=== PATIENT | female | born 1955 | race Caucasian/White ===

== ENCOUNTER 2017-09-28 13:37 | Emergency (ER) | payer MEDICARE, SELFPAY ==
[2017-09-28 13:38] VITALS: BP 124/87; PULSE 110; RESP 18; TEMP 36.2; O2SAT 96; BMI 39.2
[2017-09-28] MEDS: Ondansetron 4 MG/2 ML Vial IV (14:18)
[2017-09-28] MEDS: 0.9% Normal Saline 1,000 ML 250 ML IV (14:19)
[2017-09-28] MEDS: Morphine 4 MG/ML Syringe IV (14:19)
[2017-09-28 14:40] LABS: Absolute Lymphocyte Count 2.57 X10^3/ul (0.83-4.51); Absolute Neutrophil Count 7.1 X10^3/uL (2.0-7.7); Basophil# 0.03 X10^3/uL; Basophil% 0.3 % (0-1); Eosinophil# 0.07 X10^3/uL; Eosinophils% 0.7 % (0-5); Hematocrit 50.4 % (37-47); Hemoglobin 17.1 g/dl (12.0-15.0); Lymphocyte # 2.57 X10^3/ul (4.0); Mean Corp Hgb Conc 33.9 g/gl (32-36); Mean Corpuscular Hgb 30.2 pg (27.0-32.0); Mean Platelet Vol. 10.1 fl (6.2-12.0); Monocyte# 0.48 X10^3/uL; Monocyte% 4.7 % (0-10); Neutrophil # 7.09 X10^3/uL (2.7-7.7); Neutrophil % 68.9 % (47-70); Platelet Count 347 K/mm3 (150-450); RBC Distribution Width SD 42.1 fl (35.1-43.9); Red Blood Count 5.66 M/mm3 (4.2-5.4); White Blood Count 10.3 K/mm3 (4.4-11.0)
[2017-09-28 14:44] LABS: POSITIVE COUNT NO; POSITIVE DIFFERENTIAL NO; POSITIVE MORPHOLOGY NO
[2017-09-28 14:52] LABS: Anion Gap 11 (5-15); BUN 13 mg/dL (7-18); Calcium,Total 9.2 mg/dL (8.5-10.1); Chloride 109 mmol/L (98-107); EST Glomerular Filtration Rate 60 mL/min (>60); Est Glom Filt Rate - Afr Amer 73 mL/min (>60); Estimated Creatinine Clearance 45.14 ml/min; Glucose 99 mg/dL (74-106); Potassium 3.2 mmol/L (3.5-5.1); Sodium Level 145 mmol/L (136-145)
--- NOTE | 2017-09-28 16:42 | ED.DCSUM_ITS ---
- ER Visit Summary Date of Service: 09/28/17 Chief Complaint: Turning severe abdominal pain with diarrhea History of Present Illness: The patient is a 62 F who was admitted to [facility] for diarrhea and dehydration. CT of the abdomen revealed enteritis. Stool studies were negative. She was seen today at Dr. Montano's office for follow-up. She was sent to the ER because of severe pain and unable to eat. She denies fever, chills night sweats. She denies any visual, ocular or auditory symptoms. She denies any cardiovascular respiratory symptoms. Only GI symptom is pain and diarrhea she has no urologic symptoms. She does have chronic pain and complains of aches. She denies headache, anesthesia, paresthesia or muscle weakness. Per review of Dr. Montano's office notes there is a history of chronic pain and anxiety. Physical Examination: Vital signs are remarkable for heart rate of 110. Head is atraumatic normocephalic. Pupils are equal round reactive. Extraocular muscles are intact. TMs are pearly white with landmarks noted. Nares patent with no drainage. Posterior pharynx without erythema or exudate. Uvula is midline. There is no dysphonia or dysphasia. Trachea is midline. There is no stridor with auscultation of the neck. Heart is regular without murmur, gallop or rub. S1 and S2 are normal. Lungs are clear to auscultation with good movement of air bilaterally. With distraction patient had no abdominal pain bowel sounds are present and normal. Test Results: White count is normal with a hemoglobin of 17 which probably represents hemoconcentration. Electro panel is unremarkable with a potassium of 3.2 which is an improvement. Potassium at [facility] was 3.0. Emergency Department Course and Treatment: Since patient had hypokalemia with last hospitalization the BMP was obtained as well as CBC. Patient had an IV established. Received 4 mg of Zofran and 4 mg of morphine. Patient is requesting more pain medicine. Patient was told she would not be discharged with any pain medicine other than dicyclomine. She states she has dicyclomine at home. She will not receive any additional morphine since she has history of chronic pain and concern problem that she may have a opiate dependency. Patient has been in the department for 3+ hours and has had no vomiting or diarrhea. Treatment Plan: She was informed her blood work is improved from her last hospital admission. She was informed the expiration of her pain was secondary to the enteritis. She was informed that she does not meet criteria for admission. Daughter informed me to do what was medically necessary and she would deal with her mother. Disposition: Discharged to home Impression: 1. Burning severe diffuse abdominal pain 2. Recent diagnosis of enteritis 3. Reported diarrhea 4. History of chronic pain 5. History of hypertension 6. History of hypothyroidism 7. History of anxiety disorder This note was generated with [employer] dictation software. It may contain incorrect words, spelling, and punctuation that were not noted in review of the chart prior to signing ED Disposition - Plan for ED Patient: Disposition: Home or Assisted Living Chief Complaint: Abd Pain Instructions: ED Abdominal Pain Unkn Cause Referrals: Rashad Siegel MD [Primary Care Provider] - As Needed
[2017-09-28 17:25] VITALS: BP 136/80; PULSE 95; RESP 14; O2SAT 99
== END 2017-09-28 17:27 | disposition home or self-care (01) ==
PROVIDERS: Emergency Provider Emergency Medicine; Family Provider Family Medicine; PCP Family Medicine
DX: R10.84 Generalized abdominal pain (principal); K52.9 Noninfective gastroenteritis and colitis, unspecified; G89.29 Other chronic pain; E86.0 Dehydration; E11.9 Type 2 diabetes mellitus without complications; I10 Essential (primary) hypertension; E03.9 Hypothyroidism, unspecified; K21.9 Gastro-esophageal reflux disease without esophagitis; F41.9 Anxiety disorder, unspecified; E66.9 Obesity, unspecified; Z72.0 Tobacco use; Z79.899 Other long term (current) drug therapy
CPT/HCPCS: 80048; 85025; 96361; 96374; 96375; 99283; J7030; J2405

== ENCOUNTER 2017-10-08 11:11 | Day surgery (SDC) | payer MEDICARE, SELFPAY ==
--- NOTE | 2017-10-08 | EGD_PTH ---
PATIENT: BUBBA PETERSON LOC: EN U#:[id number] AGE/SX: 62/F ROOM: RE10/08/[address]: Dr. Andrzej Durbin MD : 1955 BED: DIS: 10/08/2017 SPEC #: [id number] RECD: 10/08/17 14:13 STATUS: CHADD KARON #: [id number] JOSE: 10/08/17 00:[address]: Andrzej Durbin DEPT: SURGICAL PATHOLOGY RECD BY: Farzaneh Kline ENTERED: 10/08/17 15:17 SP TYPE: EGD BIOPSY OT DR: Dr. Rashad Siegel MD Tissues: A - Gastric mucous membrane B - Gastric mucous membrane C - Ileum, NOS D - COLON BIOPSY Procedures: Surgery Specimen Level IV HEADER OPERATION: EGD and colonoscopy PRE-OP DIAGNOSIS: Nausea, abdomen pain, change in bowel habits TISSUE SUBMITTED: A ? Jejunal biopsy, B ? Antral biopsy for histo and H. pylori, C ? Terminal ileum biopsy, D ? Random colonic biopsy MICROSCOPIC DIAGNOSIS A. Jejunum, biopsy: No pathologic diagnosis. B. Gastric antrum, biopsy: Mild chronic gastritis. C. Terminal ileum, biopsy: No pathologic change. D. Colon, random biopsy: Mild melanosis coli. AM:margo 10/09/17 COMMENT B. The results of immunohistochemistry for Helicobacter pylori will be reported separately ([id number]). C. Benign appearing lymphoid aggregates are present. MICROSCOPIC DESCRIPTION Slides are reviewed. GROSS DESCRIPTION A - Received in fixative is one container labeled with the patient's name and designated jejunal biopsy. The specimen consists of one irregular fragment of light woodward soft tissue that measures 0.4 x 0.3 x 0.1 cm. The specimen is totally submitted in one cassette. B - Received in fixative is one container labeled with the patient's name and designated antral biopsy. The specimen consists of one irregular fragment of light woodward soft tissue that measures 0.3 x 0.3 x 0.1 cm. The specimen is totally submitted in one cassette. C - Received in fixative is one container labeled with the patient's name and designated terminal ileum biopsy. The specimen consists of one irregular fragment of light woodward soft tissue that measures 0.4 x 0.3 x 0.1 cm. The specimen is totally submitted in one cassette. D - Received in fixative is one container labeled with the patient's name and designated random colonic biopsy. The specimen consists of multiple irregular fragments of light woodward soft tissue that in aggregate measure 0.8 x 0.5 x 0.1 cm. The specimen is totally submitted in one cassette. / MEI:margo 10/08/17 TC:3 CPT: 89046 x4
--- NOTE | 2017-10-08 | IMM_PTH ---
PATIENT: BUBBA PETERSON LOC: EN U#:[id number] AGE/SX: 62/F ROOM: RE10/08/[address]: Dr. Andrzej Durbin MD : 1955 BED: DIS: 10/08/2017 SPEC #: [id number] RECD: 10/09/17 14:32 STATUS: CHADD RENani #: [id number] JOSE: 10/08/17 00:[address]: Andrzej Durbin DEPT: IMMUNOHISTOCHEMISTRY RECD BY: Camilla Kunz ENTERED: 10/09/17 14:32 SP TYPE: IMMUNO OTHR DR: Dr. Rashad Siegel MD Tissues: B - Stomach, NOS Procedures: H Pylori (initial) PHYSICIAN & INSTITUTION [place] [id number] SPECIMEN INFORMATION: Tissue Source: B ? Antral biopsy Clinical Info: Nausea, abdomen pain, change in bowel habits Specimen Number: [id number] CPT code: 92779 METHODOLOGY: Deparaffinized sections of prefer/formalin-fixed tissue or PAP/DQ stained slides are incubated with monoclonal/polyclonal antibodies/oligonucleotide probes. Localization is made via biotin free immunoperoxidase method. Appropriate controls are performed and reacted as expected. Results on target cell population are indicated in the following table: RESULTS: ANTIBODY / CLONE RESULT Block B H Pylori (polyclonal) negative These tests were developed and their performance characteristics determined by [facility]. They may not have been cleared or approved by the U.S. Food and Drug Administration. The FDA has determined that such clearance or approval is not necessary. INTERPRETATION: B. Antral biopsy: Negative for Helicobacter pylori organisms. AM:margo 10/10/17
[2017-10-08 11:28] VITALS: BP 123/61; PULSE 79; RESP 16; TEMP 36.6; O2SAT 96; BMI 40.4
--- NOTE | 2017-10-08 12:10 | HP.PCM_ITS ---
History and Physical Date of Admission: 10/08/17 Annetta Olivares a 62 year old female who is a consultation requested by Dr. Siegel~for an opinion regarding altered bowel habits. ~My final recommendations will be communicated back to the requesting physician by way of shared Medical record. The patient has~been seen previously. The patient denies~a family~ history of colon cancer. ? The patient has been seen by Dr. Siegel on several occasions, as far back as a year ago, for reported abdominal pain and/or diarrhea. ~ ? Component Latest Ref Rng & Units 07/19/2017 Protein, Total 6.3 - 8.0 g/dL 7.5 Albumin 3.9 - 4.9 g/dL 4.3 Calcium 8.5 - 10.2 mg/dL 9.4 Bilirubin, Total 0.2 - 1.3 mg/dL 0.2 Alkaline Phosphatase 32 - 117 U/L 75 AST 13 - 35 U/L 25 Glucose 74 - 99 mg/dL 104 (H) BUN 7 - 21 mg/dL 14 Creatinine 0.58 - 0.96 mg/dL 0.96 Sodium 136 - 144 mmol/L 141 Potassium 3.7 - 5.1 mmol/L 3.4 (L) Chloride 97 - 105 mmol/L 99 CO2 22 - 30 mmol/L 25 Anion Gap 9 - 18 mmol/L 17 ALT 7 - 38 U/L 28 eGFR- ? >60 eGFR-All Other Races . 59 ? ? Presenting complaint: The patient tells me she has an urge to have a bowel movement every ten to fifteen minutes, starting shortly after rising. ~Onset a couple months ago. The thickest stool is like pudding. No blood. Toward the end of the movements, which can go on until at least noon, the stools will be morales liquid. ~ ? The patient also reports that she wake at night with the urge to go. ? The patient is currently having LUQ pain. ~She tells me that it be a stabbing sensation. ~The pain can move down the left side. ~The LUQ stays tender. ~~She states my whole gut area feels like someone hit it with a baseball bat. ? The patient takes famotidine before bed. ~She gets reflux at night. ~Usually has dinner around 4-5:00. She doesn't eat after that. She also takes oxycodone before bed. She heads to bed between 10-11. ~She sleeps on memory foam propping up with pillows. ~ ? The patient reports getting extremely gassy each evening. ~Little dairy. ? ? REVIEW OF SYSTEMS: GENERAL: No weight loss, malaise or fevers GI: The patient states that her appetite has been adequate. ~She does~get hungry. There has been some~nausea, no~vomiting. She denies~dysphagia and denies ~odynophagia. There has partially~been indigestion with~heartburn. There has partially~been regurgitation. Bowel habits have been irregular. There has ~been diarrhea. There has not~been constipation. The patient denies~rectal bleeding. There has not~been melena. Daily abdominal pain that is located in the left upper~quadrant. All other reviewed and negative other than HPI. ? ? The patient was seen by Dr. Gil~for colonoscopy 08/12/14 for reported rectal bleeding. ~Dr. Gil reported it as normal with the exception of internal hemorrhoids. At that time she reported upper abdominal pain. ? ? PAST?MEDICAL?HISTORY PAST MEDICAL HISTORY Diagnosis Date ? Anxiety state, unspecified 11/08/2005 ? Chronic pain syndrome ? ? now seeing Dr. Sin who is prescribing pain meds ? Depressive disorder, not elsewhere classified 11/08/2005 ? Esophageal reflux 11/08/2005 ? Generalized convulsive epilepsy without mention of intractable epilepsy ? ? inactive, not on meds ? Hemorrhage of gastrointestinal tract, unspecified ? ? HTN (hypertension) ? ? Hypothyroid ? ? Lumbago 11/08/2005 ? Myalgia and myositis, unspecified 03/11/2004 ? Obesity, unspecified 11/08/2005 ? Other and unspecified hyperlipidemia 11/08/2005 ? Rectal bleed ? ? Tobacco use disorder ? ? Unspecified essential hypertension 11/08/2005 ? ? PAST?SURGICAL?HISTORY PAST SURGICAL HISTORY Procedure Laterality Date ? APPENDECTOMY ? 1975 ? with Csection ? BX OF BREAST; INCISIONAL ? 08/2004 ? Bx of breast, incisional ? DELIVERY ONLY ? 1975,1983 ? , low cervical ? COLONOSCOP W/ OR W/O BRSH SPEC ? ? ? Colonoscopy ? COLONOSCOP W/ OR W/O BRSH SPEC ? 06/07/2006 ? Colonoscopy ? COLONOSCOP W/ OR W/O BRSH SPEC ? 06/16/2011 ? Colonoscopy ? COLONOSCOP W/ OR W/O BRSH SPEC ? 08/12/14 ? repeat 2024 ? CYSTO.PANENDO ? 12/12/2002 ? Cystoscopy ? EGD W/O OR W/BRUSH/WASH ? 02/03/2004 ? EGD ? EGD W/O OR W/BRUSH/WASH ? 02/03/2004 ? EGD ? EGD W/O OR W/BRUSH/WASH ? 02/11/2007 ? EGD ? ESWL ? 03/21/16 ? FNA WITH IMAGING ? 08/14/12 ? U/S FNA left thyroid nodule ? LYSIS OF ADHESIONS ? 2010 ? MEDIASTINOSCOPY ? 06/08/2000 ? [facility]. [place] ? PAST SURGICAL HISTORY OF ? 1986 ? Lumbar disc surgery. [place] [facility] ? PAST SURGICAL HISTORY OF ? 1989 ? Lumbar fusion ? PAST SURGICAL HISTORY OF ? 1997 ? Lumbar fusion, screws ? PAST SURGICAL HISTORY OF ? 1994 ? adhesiolysis, pelvic mass removal ? PAST SURGICAL HISTORY OF ? 2008 ? anterior cervical discectomy ? PAST SURGICAL HISTORY OF Right 2010 ? shoulder surgery ? REMOVAL GALLBLADDER ? 1981 ? Cholecystectomy ? REMOVAL OF OVARY/TUBE(S) ? 1994 ? Salpingo-oophorectomy, pre-cancerous tumor removed from abdomen ? REVISE MEDIAN N/CARPAL TUNNEL SURG ? 1991 ? Right wrist ? TOTAL ABDOM HYSTERECTOMY ? 1985 ? Hysterectomy, TAYLOR (benign) ? ? FAMILY?HISTORY FAMILY HISTORY Problem Relation Age of Onset ? Diabetes Mother ? ? Hypertension Mother ? ? Thyroid Mother ? ? Heart Father ? ? ? of [place] at age 65 ? Stroke Father ? ? Cancer Maternal Aunt ? ? ? breast ? Colon Cancer Other ? ? ? none ? Colon Polyps [OTHER] Sister ? ? Heart Sister ? ? Fibromylagia [OTHER] Sister ? ? Arthritis Sister ? ? Blood Disease Sister ? ? Hypertension Sister ? ? ? x2 ? Hypertension Paternal Uncle ? ? ? x2 ? Hypertension Maternal Aunt ? ? Cancer Maternal Aunt ? ? ? ovarian ? Thyroid Sister ? ? ? CURRENT?MEDICATIONS ? Current Outpatient Prescriptions: potassium chloride (K-TAB) 10 mEq tablet Take 1 tablet by mouth daily with breakfast. Disp: 30 tablet Rfl: 5 levothyroxine (SYNTHROID) 125 mcg tablet Take 1 tablet by mouth once daily. Take on empty stomach. For Thyroid Disp: 30 tablet Rfl: 2 varenicline (CHANTIX) 0.5 mg (11)- 1 mg (42) tablet Take 0.5 mg daily x3days, then twice daily for 4 days, then 1mg twice daily for duration. Disp: 1 Package Rfl: 0 oxyCODONE myristate (XTAMPZA ER) 18 mg CSpT Take 18 mg by mouth twice daily for 28 days. Disp: 56 Each Rfl: 0 oxyCODONE myristate (XTAMPZA ER) 18 mg CSpT Take 18 mg by mouth twice daily. Disp: Rfl: valsartan (DIOVAN) 80 mg tablet TAKE ONE TABLET BY MOUTH ONCE DAILY Disp: 30 tablet Rfl: 3 PARoxetine (PAXIL) 40 mg tablet TAKE ONE TABLET BY MOUTH DAILY Disp: 90 tablet Rfl: 1 hydroCHLOROthiazide (HYDRODIURIL, ESIDRIX) 25 mg tablet Take 1 tablet by mouth once daily. Disp: 30 tablet Rfl: 3 FAMOTIDINE (PEPCID ORAL) Take ~by mouth as needed. Disp: Rfl: ergocalciferol, vitamin D2, (DRISDOL) 50,000 unit capsule Take 1 capsule by mouth once each week. Disp: 12 capsule Rfl: 3 cyclobenzaprine (FLEXERIL) 10 mg tablet Take 1 tablet by mouth three times daily as needed. Disp: 60 tablet Rfl: 0 ? No current facility-administered medications for this visit. ? ? SOCIAL HISTORY: Patient is . She quit smoking last month and reports her alcohol use as never. ? ? PHYSICAL EXAMINATION: Blood pressure 138/77, pulse 78, height 154.9 cm (5' 1), weight 99.1 kg (218 lb 6.4 oz). General Appearance: Well appearing, alert, well-hydrated, well nourished. Skin: Skin color, texture, turgor normal, no suspicious rashes or lesions. Eyes: Anicteric sclera. Neck: Supple, no adenopathy; thyroid symmetric, normal size. Lungs: Lungs clear to auscultation. No wheezing, rhonchi, rales. Heart: RRR without murmur. Abdomen: Bowel sounds normal. ~Abdomen soft, moderate tenderness LUQ and flank. ~Slight tenderness mid left toward umbilicus. ~ ~~Minimal tenderness otherwise. ~No guarding or rebound. ~No masses, organomegaly. Extremities: No deformities, edema. Peripheral Pulses: Normal. Neurologic: Gait normal. Sensation grossly intact. ? ? Impression: nausea ~2)upper abdominal pain ~3)altered bowel habits ? ? Plan: Blood work and US for starters. ~Zofran for nausea. Further plan based on the results. ~She agrees with this plan. I have personally interviewed and examined this patient. I have reviewed the information that the MA~entered for this encounter. Greater than 30~minutes total time used this visit to review old chart, review new information, update current history and evaluate patient. A majority of the time was spent in discussion and counseling to formulate the plan. ? Cristiana Vargas RN SEAT COVERER ?1:37 PM
[2017-10-08 12:37] VITALS: BP 104/91; BP 123/61; PULSE 82; RESP 18; TEMP 36.6; O2SAT 95
--- NOTE | 2017-10-08 12:38 | OP.PCM_ITS ---
Report of Operation Date of Procedure: 10/08/17 Pre-Operative Diagnosis: LLQ pain, GERD, Diarrhea Post-Operative Diagnosis: minimal gastritis, normal EGD, normal TI, normal Colonoscopy Surgery/Procedure Performed:: EG with Biopsy, Colonoscopy with Biopsy object oriented developer: None Type of Anesthesia:: MAC Anesthesiologist: [employer] - ASA3 Specimen's removed: jejunum, gastric, terminal ileum, guzman colon Description of Procedure: The patient was brought to the endoscopy suite. Sign in was performed verifying patient, site, planned procedure, critical nursing information, the patient was monitored with cardiac, pulse oximetric, and blood pressure monitoring devices. Monitored anesthetic care was provided for sedation. Following IV sedation and after the oropharynx was sprayed with Cetacaine spray , a video gastroscope was inserted in the oropharynx and advanced down the esophagus without difficulty. The scope was advanced through the stomach, through the pylorus through the duodenum to the proximal jejunum. General. Unremarkable. A biopsy was performed to rule out celiac. 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 Stomach demonstrated mild gastritis. The body, fundic portions of the stomach were unremarkable. The esophagus was unremarkable. The patient was positioned for colonoscopy. A digital rectal exam was performed which revealed no palpable abnormalities The video colonoscope was inserted and advanced to the cecum as verified by the ileocecal valve, cecal base anatomic features and palpation. due to loose stools. The scope was introduced into the terminal ileum which appeared unremarkable. A terminal ileal biopsy was performed. The entire colon was unremarkable. Random colon biopsies from the cecum and sigmoid were performed. The scope was placed in the rectum. This appeared unremarkable. The videocolonoscopy was removed The patient tolerated the procedure well and was brought to recovery in stable condition
[2017-10-08 12:40] VITALS: BP 111/74; BP 123/61; PULSE 86; RESP 18; O2SAT 92
[2017-10-08 12:45] VITALS: BP 118/72; BP 123/61; PULSE 83; RESP 16; O2SAT 93
[2017-10-08 12:52] VITALS: BP 115/63; BP 123/61; PULSE 75; RESP 18; TEMP 36.8; O2SAT 94
== END 2017-10-08 13:13 | disposition home or self-care (01) ==
LOC: EN 11:12 → AC 11:13
PROVIDERS: Family Provider Family Medicine; PCP Family Medicine; Visit Provider Surgery
PROC: 0DJD8ZZ Inspection of Lower Intestinal Tract, Via Natural or Artificial Opening Endoscopic (ICD-10-PCS; CPT 45378; principal; 2017-10-08 12:30)
DX: K29.50 Unspecified chronic gastritis without bleeding (principal); K63.89 Other specified diseases of intestine; K64.8 Other hemorrhoids; G89.4 Chronic pain syndrome; I10 Essential (primary) hypertension; E78.5 Hyperlipidemia, unspecified; E03.9 Hypothyroidism, unspecified; M60.9 Myositis, unspecified; G25.81 Restless legs syndrome; K21.9 Gastro-esophageal reflux disease without esophagitis; E66.9 Obesity, unspecified; F32.9 Major depressive disorder, single episode, unspecified; F41.9 Anxiety disorder, unspecified; Z78.0 Asymptomatic menopausal state; Z79.899 Other long term (current) drug therapy; Z87.891 Personal history of nicotine dependence
CPT/HCPCS: 43239; 45380; 88305; 88342; J7120

== ENCOUNTER → 2018-08-01 10:19 | Outpatient (CLI) | payer MEDICARE, SELFPAY ==
--- NOTE | 2018-08-01 10:26 | RAD_ITS ---
STUDY: X-RAY - THORACIC SPINE REASON FOR EXAM: Female, 63 years old. Thoracic pain TECHNIQUE: 2 view(s) of the thoracic spine were obtained. COMPARISON: None. FINDINGS: Normal kyphosis of the thoracic spine. There is no substantial scoliosis. There is demineralization of the thoracic spine with endplate spondylosis. Normal disc space heights. The soft tissue structures are unremarkable. RAD/Thoracic Spine 2 Views IMPRESSION: The bones are osteopenic. There is minimal endplate spondylosis throughout the thoracic spine. There is no evidence of thoracic spinal fracture or subluxation. Disc spacing is preserved. An anterior fusion plate is seen in the lower cervical area. Electronically Signed: Rustam Cardenas MD at 23:30 EST , Service support ,
== END ==
LOC: RAD 10:22
PROVIDERS: Family Provider Family Medicine; PCP Family Medicine; Referring Provider Anesthesiology Pain Medicine; Visit Provider Anesthesiology Pain Medicine
DX: M54.6 Pain in thoracic spine (principal)
CPT/HCPCS: 72070

== ENCOUNTER → 2020-07-06 09:16 | Outpatient (CLI) | payer MEDICARE, SELFPAY ==
--- NOTE | 2020-07-06 11:30 | MRI_ITS ---
STUDY: MRI LUMBAR SPINE WITHOUT CONTRAST REASON FOR EXAM: Female, 65 years old. Back and leg pain, hx prior surgery TECHNIQUE: Standardized fat and water weighted pulse sequences were obtained in the sagittal and axial planes. COMPARISON: Lumbar myelogram 11/03/2013 FINDINGS: T12-L1: Normal endplates. Normal disc height, hydration and morphology. Normal bilateral facet joints. Normal central canal and bilateral lateral recesses. Normal bilateral intervertebral neural foramina. Normal lumbar lordosis. There is no substantial scoliosis. Normal conus medullaris that terminates at the T12/L1. L1-2: Normal endplates. Normal disc height, hydration and morphology. Normal bilateral facet joints. Normal central canal and bilateral lateral recesses. Normal bilateral intervertebral neural foramina. L2-3: Mild bilobed disc protrusion produces mild spinal stenosis but no neural foraminal stenosis. L3-4: Normal endplates. Normal disc height, hydration and morphology. Normal bilateral facet joints. Normal central canal and bilateral lateral recesses. Normal bilateral intervertebral neural foramina. L4-5: Extensive metallic susceptibility aspect distortion ratio artifact obscures L4/L5. L5-S1: Extensive metallic susceptibility aspect distortion ratio artifact obscures L5/S1. Normal visualized sacral ala. Normal visualized paraspinous soft tissue structures. MRI/Spine Lumbar (Routine) IMPRESSION: Postsurgical changes at L4/L5 produce significant artifact. No obvious severe spinal stenosis or neural foraminal stenosis. Electronically Signed: Andrzej Dutton MD at 12:56 EST Tel , Service support ,
== END ==
PROVIDERS: PCP Family Medicine; Referring Provider Anesthesiology Pain Medicine; Visit Provider Anesthesiology Pain Medicine
DX: M54.9 Dorsalgia, unspecified (principal); M79.606 Pain in leg, unspecified
CPT/HCPCS: 72148

== ENCOUNTER → 2020-12-13 11:37 | Outpatient (CLI) | payer MEDICARE, SELFPAY ==
--- NOTE | 2020-12-13 11:40 | RAD_ITS ---
HISTORY: FALL COMPARISON: August 01, 2018 FINDINGS: # of images incl. paperwork: 2 XR Spine Thoracic 3 Views: Anterior cervical fixation hardware with prosthetic disc spacer remains. Sternal wires remain. The intracranial tumor sternal wires remain fractured. Dextroscoliosis may just be positional. Pulmonary edema is suggested. Thoracic vertebral bodies are normal in height. No acute thoracic spine fracture or subluxation. No significant degenerative change. RAD/Thoracic Spine 3 Views IMPRESSION: No acute thoracic spine fracture or subluxation. at 0650 Reported and signed by: Catrachito Hammonds MD Electronically Signed: Catrachito Hammonds MD at 6:49 EDT Tel , Service support ,
--- NOTE | 2020-12-13 11:41 | RAD_ITS ---
HISTORY: FALL COMPARISON: None FINDINGS: # of images incl. paperwork: 2 XR Spine Lumbar 2 or 3 Views: Posterior spinal fixation at L4-L5. Partial fusion across the intervertebral disc space. Stimulation lead wire remains in place. Anterior subluxation of L3 on L4. Posterior subluxation of L2 on L3. This is chronic disease. Cholecystectomy clips. Laminectomies of L4 and L5. Fusion of the L3-L4, L4-L5, and L5-S1 facets Lumbar vertebral bodies are normal in height. Lumbar disc spaces areotherwise fairly well. No acute lumbar spine fracture or subluxation. RAD/Lumbar Spine 2 or 3 Views IMPRESSION: No acute lumbar spine fracture or subluxation. Spinal fixation at L4-L5. Degenerative malalignment from L2-L4. Laminectomies at L4 and L5. at 0648 Reported and signed by: Catrachito Hammonds MD Electronically Signed: Catrachito Hammonds MD at 6:47 EDT Tel , Service support ,
== END ==
LOC: RAD 11:39
PROVIDERS: PCP Family Medicine; Referring Provider Anesthesiology Pain Medicine; Visit Provider Anesthesiology Pain Medicine
DX: M54.5 Low back pain (principal); M54.6 Pain in thoracic spine
CPT/HCPCS: 72072; 72100

== ENCOUNTER → 2021-03-03 12:20 | Outpatient (CLI) | payer MEDICARE, SELFPAY ==
[2021-03-03] MEDS: Lidocaine 2% (5ml sdv) 5 ML VIAL.MPF INFILT (12:00)
--- NOTE | 2021-03-03 12:22 | CT_ITS ---
STUDY: CT LUMBAR SPINE WITH CONTRAST REASON FOR EXAM: Female, 65 years old. pain RADIATION DOSAGE (If Supplied By Facility): CTDIvol = ( 31.77 ) mGy, DLP = ( 1216.95 ) mGycm TECHNIQUE: The patient was scanned in a multi detector CT scanner. High resolution transaxial imaging was performed following the intravenous administration of 14 mL Iso- Intrathecal. Images were obtained from T11 through the sacrum. Sagittal and coronal images were reconstructed. Individualized dose optimization techniques were used for this CT. COMPARISON: 11/03/2013. FINDINGS: Unremarkable contrast opacification of the thecal sac is visualized, no evidence of extravasation of contrast outside the thecal sac. Unremarkable lordosis of the columns of the lumbar spine is visualized. No evidence of spondylolisthesis is seen. Bipedicular posterior internal fixation and laminectomy visualized at L4-L5. The lumbar vertebral bodies demonstrate unremarkable contours with no evidence of compression deformity, multilevel degenerative endplate changes with anterior osteophyte formation is seen. Unremarkable opacification of the CSF spaces surrounding the cord, the terminal cord demonstrates unremarkable contours and is visualized at the level of the superior endplate of the L1 vertebral body, terminal nerve fibers demonstrate no evidence of thickening or clumping to suggest arachnoiditis. L1-2: Mild degenerative disc changes and hypertrophic changes in the facet joints visualized, no significant narrowing of the spinal canal is visualized, moderate to severe narrowing of the right neural foramina and severe narrowing of the left neuroforamina is seen at this level. L2-3: Circumferential disc bulge with hypertrophic changes in the facet joints and ligamentum flavum is visualized at this level, no significant narrowing of the spinal canal is visualized at this level, severe narrowing of the right neural foramina and severe narrowing of the left neuroforamina is visualized at this level. L3-4: Circumferential disc bulge with hypertrophic changes in the facet joints and ligamentum flavum is visualized at this level, mild narrowing of the spinal canal is visualized at this level, severe narrowing of the right neural foramina and severe narrowing of the left neuroforamina is visualized at this level. L4-5: Circumferential disc bulge with hypertrophic changes in the facet joints and ligamentum flavum is visualized at this level, no narrowing of the spinal canal is visualized at this level, mild to moderate narrowing of the right neural foramina and moderate to severe narrowing of the left neuroforamina is visualized at this level. L5-S1: Degenerative changes, no significant narrowing of the spinal canal and neuroforamina seen at this level. Normal visualized paraspinous soft tissue structures. CT/Spine Lumbar WITH Contrast IMPRESSION: No evidence of cord compression is visualized, narrowing of the neural foramina visualized at multiple levels but most prominent at L2-L3 and to a lesser degree at L3-L4. Progression is visualized in comparison to the prior study. Electronically Signed: Nicola Sales MD at 16:43 EDT Tel , Service support ,
--- NOTE | 2021-03-03 12:22 | RAD_ITS ---
FLUOROSCOPICALLY GUIDED LUMBAR MYELOGRAM HISTORY: The patient is a 65 years year old Female who presents with low back pain radiating of the left lower extremity. CONSENT: Risks, benefits, treatment options, potential complications and personnel to be involved were discussed (including the risks of radiation exposure, contrast and anesthesia administration, and any equipment needed for the procedure to ensure best possible outcome) with the patient and all questions were answered and consent was obtained prior to procedure. MEDICATION RECONCILIATION: The patient''s medications and allergies were reviewed in the electronic medical record and reconciled to the proposed procedure/treatment. TIME OUT: An audible time out was performed immediately prior to the start of the procedure with the entire procedure team to confirm the patient''s identity (name, medical record number), anatomy (including marking of site and side), type of procedure to be performed, patient position, procedure consent form, relevant diagnostic and radiology test results, antibiotic administration, safety precautions, and procedure-specific equipment was present. ANESTHESIA: Local anesthesia: 2% Lidocaine was administered. IMAGE GUIDANCE: Fluoroscopic and sonographic guidance was used. Ultrasound demonstrated patency of the target vein without filling defects. Access was obtained under direct sonographic visualization. A sonographic image of the vessel was obtained and placed into the permanent archive for documentation. FLUOROSCOPIC RADIATION SUMMARY: Fluoro Time: 1:06 minutes/seconds. Radiation dose exceed 5 Gy: No If radiation dose exceeded 5 Gy, was counseling and instructional brochure provided:N/A POSITIONING: The patient was placed prone on the fluoroscopy table. The paraspinal region was then prepped and draped in the usual sterile fashion. PROCEDURE DETAILS: Counting reference: Lumbosacral junction. For the purposes of this report, L5-S1 is considered the last lumbar type disc space and L4-5 is considered the level of the iliac crest. Access Site: 22 gauge spinal needle from a left paramedian approach at the L4 Level. Procedure Details: Using sterile procedure, local anesthesia was introduced to the skin and subcutaneous tissues as outlined above. Under fluoroscopic guidance, the needle was carefully advanced into the lumbar subarachnoid space resulting in free flow of clear CSF. Approximately 15 mL of the ISOVUE-M 200 was injected into the thecal sac after which the needle was removed and sterile dressing was applied. The projection images of the contrast opacified lumbar spine were then obtained and patient was transferred to CT scan for CT myelogram. The patient tolerated the procedure well with no immediate applications. RAD/Lumbar Myelogram IMPRESSION: SUCCESSFUL FLUOROSCOPICALLY GUIDED LUMBAR MYELOGRAM. Electronically Signed: Nicola Sales MD at 16:10 EDT Tel , Service support ,
[2021-03-03 12:38] VITALS: BP 148/79; PULSE 67; RESP 14; O2SAT 95; BMI 37.5
[2021-03-03 15:05] VITALS: BP 148/58; PULSE 64; RESP 14; O2SAT 100
== END | disposition home or self-care (01) ==
LOC: CT 12:21
PROVIDERS: PCP Family Medicine; Referring Provider Orthopaedic Surgery; Visit Provider Orthopaedic Surgery
DX: M51.37 Other intervertebral disc degeneration, lumbosacral region (principal); M51.36 Other intervertebral disc degeneration, lumbar region
CPT/HCPCS: 62304; 72132; Q9965

== ENCOUNTER → 2021-05-03 16:06 | Outpatient (CLI) | payer MEDICARE, SELFPAY ==
[2021-05-03 18:18] LABS: Amphetamine Urine VISTA NEGATIVE (<1000 ng/mL); Barbiturate Urine VISTA NEGATIVE (< 200 ng/mL); Benzodiazepine Urine VISTA NEGATIVE (< 200 ng/mL); Cocaine Urine VISTA NEGATIVE (< 300 ng/mL); Ecstacy Urine VISTA NEGATIVE (< 500 ng/mL); Methadone Urine VISTA NEGATIVE (< 300 ng/mL); PCP Urine VISTA NEGATIVE (< 25 ng/mL); THC Urine VISTA NEGATIVE (< 50 ng/mL); Vista UDS pH Range 5
== END ==
PROVIDERS: PCP Family Medicine; Referring Provider Anesthesiology Pain Medicine; Visit Provider Anesthesiology Pain Medicine
DX: F11.20 Opioid dependence, uncomplicated (principal)
CPT/HCPCS: 80307

== ENCOUNTER 2022-08-29 10:54 | Emergency (ER) | payer MEDICARE, SELFPAY ==
[2022-08-29 10:55] VITALS: BP 157/117; PULSE 60; RESP 18; TEMP 35.9; O2SAT 96
[2022-08-29 12:20] LABS: Absolute Lymphocyte Count 2.47 X10^3/uL (0.83-4.51); Absolute Neutrophil Count 6.8 X10^3/uL (2.0-7.7); Basophil# 0.07 X10^3/uL; Basophil% 0.7 % (0-1); Eosinophil# 0.16 X10^3/uL; Eosinophils% 1.6 % (0-5); Hematocrit 49.6 % (37-47); Hemoglobin 15.6 g/dL (12.0-15.0); Lymphocyte # 2.47 X10^3/ul (0.83-4.51); Lymphocyte % 24.7 % (19-41); Mean Corp Hgb Conc 31.5 g/dL (32-36); Mean Corpuscular Hgb 30.1 pg (27.0-32.0); Mean Corpuscular Volume 95.6 fL (81-99); Mean Platelet Vol. 9.5 fl (6.2-12.0); Monocyte# 0.53 X10^3/uL; Monocyte% 5.3 % (0-10); NRBC Flagged by Analyzer 0 % (0-5); Neutrophil # 6.76 X10^3/uL (2.7-7.7); Neutrophil % 67.4 % (47-70); Platelet Count 279 K/mm3 (150-450); RBC Distribution Width CV 12.9 % (11.6-14.6); Red Blood Count 5.19 M/mm3 (4.2-5.4)
[2022-08-29 12:31] LABS: Anion Gap 5 (5-15); BUN 15 mg/dL (7-18); BUN/Creat Ratio 16.3 RATIO (10-20); Calcium,Total 8.5 mg/dL (8.5-10.1); Chloride 107 mmol/L (98-107); Creatinine, Serum 0.92 mg/dL (0.55-1.02); EST Glomerular Filtration Rate 65 mL/min (>60); Est Glom Filt Rate - Afr Amer 79 mL/min (>60); Glucose 127 mg/dL (74-106); Sodium Level 141 mmol/L (136-145)
--- NOTE | 2022-08-29 13:11 | CT_ITS ---
STUDY: CT ABDOMEN AND PELVIS WITHOUT CONTRAST REASON FOR EXAM: Female, 67 years old. R flank pain RADIATION DOSAGE (If Supplied By Facility): CTDIvol = ( 23.71 ) mGy, DLP = ( 1143.44 ) mGycm TECHNIQUE: Transaxial images were obtained from the dome of the diaphragm to the symphysis pubis without oral contrast, and without intravenous contrast. Sagittal and coronal images were reconstructed. Individualized dose optimization techniques were used for this CT. COMPARISON: None. FINDINGS: The visualized lung bases are unremarkable. The visualized portions of the heart are within normal limits. There is decreased attenuation of the liver consistent with steatosis. Hepatomegaly. There are surgical clips in the gallbladder fossa consistent with a prior cholecystectomy. Normal spleen. Normal pancreas. Normal bilateral adrenal glands. Normal right kidney. Focal cortical scar in the anterior lateral aspect of the left kidney with evidence of a 6.2 mm nonobstructive calculus in the midpole calyx of the left kidney. Normal visualized stomach. Normal small intestine. Normal colon. The appendix is visualized and appears normal. There is scattered atherosclerotic calcification of the abdominal aorta, without a demonstrated aneurysm. Normal inferior vena cava. Normal retroperitoneum. Normal urinary bladder. Normal abdominal wall. Prior laminectomy and fusion at the L4-L5 level. CT/Abdomen/Pelvis without Cont IMPRESSION: Fatty infiltration of the liver. Cardiomegaly. Status post cholecystectomy. Nonobstructive left intrarenal calculus with focal scarring in the lateral aspect of the left kidney. Electronically Signed: Ravin Hamilton MD at 14:03 EST ,
--- NOTE | 2022-08-29 13:12 | EDS_ITS ---
HPI HPI - GI History of Present Illness Chief Complaint: Flank Pain Informant: patient Abdominal Pain/Flank Pain Onset: Today Context: Sudden Onset Timing: Continuous and Waxes and wanes Quality: Aching Location: Right Flank Current Severity: Severe Maximum Severity: Severe Worsened by: - (Certain positions) Relieved by: Nothing Nausea/Vomiting/Emesis GI Symptom: Positive for Nausea and Vomiting Diarrhea/Melena/Hematochezia GI Symptom: Negative for Diarrhea, Melena or Hematochezia Associated Symptoms Associated Symptoms: Negative for Dysuria, Frequency or Hematuria Narrative Narrative: Sudden onset pain in her right flank started more in her back and came around to the right side of the right abdomen, more lower than upper, an hour or 2 ago, about several minutes after she got into the shower. No slip, fall, injury. Associate with nausea and vomiting, never had this pain before. No syncope. [facility] Medical History (Updated 08/29/22 @ 15:[address] Jean-Claude Gunderson MD) Flank pain Home Medications levothyroxine 75 mcg tablet 125 mcg PO DAILY 11/03/13 [History Last Taken 10/08/17 07:00] paroxetine HCl 20 mg tablet 40 mg PO DAILY 11/03/13 [History Last Taken 11/02/16] Buprenorphine [Butrans 15 Mcg/Hr Patch] 1 ea transdermal QWEEK 10/04/17 [History Last Taken 10/07/17] orphenadrine citrate 100 mg tablet,extended release 100 mg PO BID PRN muscle spasms 02/16/21 [History Last Taken Unknown] valsartan 80 mg tablet 80 mg PO DAILY 02/16/21 [History Last Taken Unknown] tramadol 50 mg tablet 50 mg PO Q8 PRN Pain 03/09/21 [History Last Taken Unknown] metoprolol tartrate 25 mg tablet 25 mg PO BID 08/29/22 [History Last Taken Unknown] promethazine 25 mg tablet 25 mg PO Q6H PRN PRN Nausea #10 TABLETS 08/29/22 [Rx Last Taken Unknown] Allergy/AdvReac Type Severity Reaction Status Date / Time lisinopril Allergy Swelling Verified 08/29/22 10:57 propoxyphene napsylate Allergy Hives Verified 08/29/22 10:57 [From Jaky-Trinh] ketorolac tromethamine AdvReac Upset Verified 08/29/22 10:57 [From Toradol] Stomach phenazopyridine AdvReac Nausea/Vom/ Verified 08/29/22 10:57 [From Pyridium] Diarrhea Surgical History (Updated 08/29/22 @ 13:[address] Jean-Claude Gunderson MD) H/O total hysterectomy with bilateral salpingo-oophorectomy (BSO) Social History Smoking Status: Current every day smoker tobacco type: cigarettes ROS ROS ED Constitutional Constitutional ED: Denies chills or fever(s) Eyes Eyes: Denies change in vision or diplopia ENT ENT ED: Denies rhinorrhea or sore throat Cardiovascular Cardiovascular: Denies chest pain or palpitations Respiratory/Chest Respiratory/Chest: Denies cough or dyspnea Gastrointestinal Gastrointestinal: Reports abdominal pain, nausea and vomiting; Denies diarrhea Genitourinary Genitourinary ED: Reports flank pain; Denies dysuria or hematuria Musculoskeletal Musculoskeletal: Denies back pain or neck pain Integumentary Denies abscess or rash Neurologic Neurologic: Denies headache(s), paresthesias or weakness Psychiatric Psychiatric: Denies anxiety or suicidal thoughts EXAM Physical Exam Const Vital Signs: 08/29/22 10:55 Temperature 96.7 F L Temperature Source Temporal Pulse Rate 60 Respiratory Rate 18 Blood Pressure 157/117 H Blood Pressure Mean 130 Pulse Ox 96 Oxygen Delivery Method Room Air Positive well nourished and well developed Constitutional Narrative: In mild painful distress, holding emesis bag but not actively vomiting. Morbid obesity limits exam. General Appearance ED: well developed HEENT Reports moist mucous membranes normocephalic and atraumatic Eyes PERRL and EOMs intact bilaterally Neck full ROM and supple Resp normal respiratory effort and clear to auscultation bilaterally Cardio regular rate, regular rhythm and no murmurs GI non-distended GI Narrative: Tender right side, and the lower abdomen. No guarding or rebound. Auscultation: normoactive bowel sounds Palpation: soft Back/Spine no CVA tenderness General Back: other FROM Extremity normal to inspection General Extremety ED: Negative for edema, pulses abnormal or tenderness General Extremity: Negative for edema or pulses abnormal Neuro oriented x3, CN's II-XII intact bilaterally and no sensory deficits noted Sensorium / Orientation: awake and alert Motor Exam: strength 5/5 throughout Skin no rashes or lesions noted and no wounds MDM MDM MDM Narrative Medical decision making narrative: Labs, urinalysis, CT abdomen/pelvis was obtained, the CT does not show anything acute. I reviewed the images. There is no ureteral lithiasis, just a phlebolith in the right pelvis, no signs of hydronephrosis. There is an asymptomatic incidental left nephrolith. My interpretation of the CT agrees with that of the radiologist. Patient does not have any bandemia or signs of a leftward shift and her white blood count which is in the normal range at 10.0, and her urinalysis is normal showing no blood or signs of infection. Initially after morphine and Zofran, she was still in a lot of pain, saying that she does not have a true allergy to Toradol prior to the CT resulting, that was given as well. However she was still in a lot of discomfort. I see that she is on Butr ans patch as, as well as a muscle relaxer. I see nothing emergent here and her vital signs are normal. Gave her a dose of dicyclomine in addition to hydromorphone. She is doing better, she is in agreement with discharge home close a patient follow-up if pain persist. I did review her [facility] report. She indeed is still on Butrans patches, she received a new 1 month supply 1 week ago, and sees pain management which was unknown to me prior to reviewing this report. For this reason I am not prescribing her any new narcotic medications but I will prescribe her Phenergan. Lab Data Attestation: I reviewed the patient's lab results. Labs: Laboratory Results - last 24 hr 08/29/22 08/29/22 08/29/22 12:13 12:13 14:00 WBC 10.0 RBC 5.19 Hgb 15.6 H Hct 49.6 H MCV 95.6 MCH 30.1 MCHC 31.5 L RDW Std Deviation 46.0 H RDW Coeff of Edwin 12.9 Plt Count 279 MPV 9.5 Immature Gran % (Auto) 0.300 Neut % (Auto) 67.4 Lymph % (Auto) 24.7 [place] % (Auto) 5.3 Eos % (Auto) 1.6 Baso % (Auto) 0.7 Absolute Neuts (auto) 6.8 Absolute Lymphs (auto) 2.47 Nucleated RBC % 0 Sodium 141 Potassium 4.0 Chloride 107 Carbon Dioxide 29.0 Anion Gap 5 BUN 15 Creatinine 0.92 Est GFR (MDRD) Af Amer 79 Est GFR (MDRD) Non-Af 65 BUN/Creatinine Ratio 16.3 Glucose 127 H Calcium 8.5 Urine Color Yellow Urine Clarity Sl. Cloudy Urine pH 7.0 Ur Specific [place] 1.015 Urine Protein Negative Urine Glucose (UA) Normal Urine Ketones Negative Urine Occult Blood Negative Urine Nitrite Negative Urine Bilirubin Negative Urine Urobilinogen Normal Ur Leukocyte Esterase Negative Urine RBC 0 SEEN Urine WBC 0 SEEN Ur Squamous Epith Cells 0-5 SEEN Urine Bacteria 1+ Urine Mucus 0 SEEN Radiography Diagnostic Testing: Clinical Impression(s) from Imaging Studies Abdomen/Pelvis CT 08/29/22 13:11 IMPRESSION: Fatty infiltration of the liver. Cardiomegaly. Status post cholecystectomy. Nonobstructive left intrarenal calculus with focal scarring in the lateral aspect of the left kidney. Electronically Signed: Ravin Hamilton MD at 14:03 EST , Discharge Plan Triage Chief Complaint: Flank Pain ED Provider: Jean-Claude Gunderson Dx/Rx/DC Orders Clinical Impression: Acute right flank pain Instructions: ED Flank Pain, Uncertain Cause Prescriptions: New promethazine [promethazine] 25 mg tablet 25 mg PO Q6H PRN PRN (Reason: Nausea) Qty: 10 0RF No Action orphenadrine citrate 100 mg tablet extended release 100 mg PO BID PRN (Reason: muscle spasms) valsartan 80 mg tablet 80 mg PO DAILY tramadol 50 mg tablet 50 mg PO Q8 PRN (Reason: Pain) Label Comments: TAKE 1 TABLET BY MOUTH TWICE DAILY NEEDED FOR SEVERE PAIN levothyroxine 75 MCG tablet 125 mcg PO DAILY paroxetine HCl 20 MG tablet 40 mg PO DAILY Buprenorphine [Butrans 15 Mcg/Hr Patch] 1 EACH Patch.Tdwk 1 ea transdermal QWEEK metoprolol tartrate 25 mg tablet 25 mg PO BID Label Comments: TAKE 1 TABLET BY MOUTH TWICE DAILY Primary Care Provider: Rashad Siegel Referrals: Rashad Siegel MD [Primary Care Provider] - 3-5 Days if not improving Disposition Disposition: Home, Self Care
[2022-08-29] MEDS: Morphine 4 MG/ML Syringe IV (13:21)
[2022-08-29] MEDS: Ondansetron 4 MG/2 ML Vial IV (13:21)
[2022-08-29 14:12] VITALS: BMI 41.1
[2022-08-29 14:12] LABS: Mucous, Urine 0 SEEN /hpf (<or=2+); Red Blood Cells-Urine 0 SEEN /hpf (0-5); White Blood Cells 0 SEEN /hpf (0-5)
[2022-08-29 14:13] LABS: Color, Urine Yellow (Yellow); Glucose, Dipstick Normal (Normal); Ketone-Dipstick Negative (Negative); Leukocyte Esterase-Dipstick Negative /ul (Negative); Nitrite-Dipstick Negative (Negative); Occult Blood-Urine Negative /ul (Negative); Protein-Dipstick Negative (Negative); Specific Gravity, Urine 1.015 (1.002-1.030); Urine Bilirubin Dipstick Negative (Negative); Urine Clarity Sl. Cloudy (Clear); Urine Urobilinogen Normal (Normal)
[2022-08-29] MEDS: Ketorolac 15 MG/ML Vial IV (14:13)
[2022-08-29] MEDS: Metoclopramide 10 MG/2 ML Vial 5 MG IV (14:13)
[2022-08-29 14:19] LABS: Bacteria 1+ /hpf (None Seen); Squamous Epithelial Cells - UA 0-5 SEEN /hpf (5-10)
[2022-08-29] MEDS: HYDROmorphone 1 MG/ML Syringe IV (15:11)
[2022-08-29] MEDS: Dicyclomine 20 MG/2 ML Vial IM (15:12)
[2022-08-29 15:30] VITALS: BP 128/64; PULSE 60; RESP 15; O2SAT 89
== END 2022-08-29 16:10 | disposition home or self-care (01) ==
PROVIDERS: Emergency Provider Emergency Medicine; PCP Family Medicine; Visit Provider Emergency Medicine
DX: R10.9 Unspecified abdominal pain (principal); E66.01 Morbid (severe) obesity due to excess calories; F17.210 Nicotine dependence, cigarettes, uncomplicated; R11.2 Nausea with vomiting, unspecified
CPT/HCPCS: 74176; 80048; 81001; 85025; 96372; 96374; 96375; 99283; J7030; A4216; J2405

== ENCOUNTER → 2023-01-03 | Outpatient (CLI) | payer MEDICARE, SELFPAY ==
[2023-01-03 13:59] LABS: Amphetamine Urine VISTA NEGATIVE (<1000 ng/mL); Barbiturate Urine VISTA NEGATIVE (< 200 ng/mL); Benzodiazepine Urine VISTA NEGATIVE (< 200 ng/mL); Cocaine Urine VISTA NEGATIVE (< 300 ng/mL); Ecstacy Urine VISTA NEGATIVE (< 500 ng/mL); Methadone Urine VISTA NEGATIVE (< 300 ng/mL); PCP Urine VISTA NEGATIVE (< 25 ng/mL); THC Urine VISTA NEGATIVE (< 50 ng/mL); Vista UDS pH Range 5
== END | disposition home or self-care (01) ==
LOC: LAB 12:29
PROVIDERS: PCP Family Medicine; Referring Provider Anesthesiology Pain Medicine; Visit Provider Anesthesiology Pain Medicine
DX: F11.20 Opioid dependence, uncomplicated (principal)
CPT/HCPCS: 80307

== ENCOUNTER → 2023-05-29 | Outpatient (CLI) | payer MEDICARE, SELFPAY ==
--- NOTE | 2023-05-29 13:40 | RAD_ITS ---
STUDY: X-RAY - CERVICAL SPINE REASON FOR EXAM: Female, 68 years old. Spondylosis without myelopathy or radiculopathy, cervical region TECHNIQUE: 4 view(s) of the cervical spine were obtained. COMPARISON: None FINDINGS: Normal anterior atlantoaxial articulation. Normal odontoid process. Normal cervical lordosis. No evidence for acute fracture or subluxation. There is grade 1 retrolisthesis at C4-5. Postop changes status post anterior fusion at C5-6 with disc spacer placement. The soft tissue structures are unremarkable. RAD/Cerv Spine 2 or 3 Views IMPRESSION: Mild spondylosis and postsurgical changes at C5-6. Electronically Signed: Rosendo Fernandez MD at 22:53 EST ,
== END | disposition home or self-care (01) ==
LOC: RAD 13:34
PROVIDERS: PCP Family Medicine; Referring Provider Anesthesiology Pain Medicine; Visit Provider Anesthesiology Pain Medicine
DX: M47.812 Spondylosis without myelopathy or radiculopathy, cervical region (principal)
CPT/HCPCS: 72040

== ENCOUNTER → 2023-11-15 | Outpatient (CLI) | payer MEDICARE, SELFPAY ==
[2023-11-15 14:27] LABS: Amphetamine Urine VISTA NEGATIVE (<1000 ng/mL); Barbiturate Urine VISTA NEGATIVE (< 200 ng/mL); Benzodiazepine Urine VISTA NEGATIVE (< 200 ng/mL); Cocaine Urine VISTA NEGATIVE (< 300 ng/mL); Ecstacy Urine VISTA NEGATIVE (< 500 ng/mL); Methadone Urine VISTA NEGATIVE (< 300 ng/mL); PCP Urine VISTA NEGATIVE (< 25 ng/mL); THC Urine VISTA NEGATIVE (< 50 ng/mL); Vista UDS pH Range 4
== END | disposition home or self-care (01) ==
PROVIDERS: PCP Family Medicine; Referring Provider Anesthesiology Pain Medicine; Visit Provider Anesthesiology Pain Medicine
DX: F11.20 Opioid dependence, uncomplicated (principal)
CPT/HCPCS: 80307

== ENCOUNTER → 2024-04-23 | Outpatient (CLI) | payer MEDICARE, SELFPAY ==
[2024-04-23 15:32] LABS: CRP 5.45 mg/L (0.0-3.0)
[2024-04-23 16:24] LABS: Hemoglobin A1c 5.6 % (3.8-5.6)
[2024-04-25 16:10] LABS: Endomysial Antibody IgA Negative (Negative); Immunoglobulin A 142 mg/dL (87-352); t-Transglutaminase IgA <2 U/mL (0-3)
== END | disposition home or self-care (01) ==
LOC: MTLAB 11:11
PROVIDERS: PCP Internal Medicine; Referring Provider Internal Medicine Gastroenterology; Visit Provider Internal Medicine Gastroenterology
DX: E11.9 Type 2 diabetes mellitus without complications (principal); R19.7 Diarrhea, unspecified
CPT/HCPCS: 36415; 82784; 83036; 83516; 86140; 86255

== ENCOUNTER → 2025-03-05 | Outpatient (CLI) | payer MEDICARE, SELFPAY ==
[2025-03-05 11:40] LABS: Barbiturate Urine NEGATIVE (< 200 ng/mL); Benzodiazepine Urine NEGATIVE (< 200 ng/mL); PCP Urine NEGATIVE (< 25 ng/mL); THC Urine PRESUMPTIVE POSITIVE (< 50 ng/mL)
== END | disposition home or self-care (01) ==
PROVIDERS: PCP Family Medicine; Referring Provider Anesthesiology Pain Medicine; Visit Provider Anesthesiology Pain Medicine
DX: F11.20 Opioid dependence, uncomplicated (principal)
CPT/HCPCS: 80307